=== PATIENT | female | born 1995 | race Caucasian/White ===

== ENCOUNTER 2018-01-23 20:49 | Emergency (ER) | payer MEDICAID ==
[~2018-01-23] VITALS: Ht 149.9 cm; Wt 95.0 kg
[2018-01-23 23:00] VITALS: BP 124/86
[2018-01-23] MEDS ORDERED: HYDROGEN PEROXIDE 118 ML SOLUTION TP ONE (23:00)
== END 2018-01-23 23:58 | disposition home or self-care (01) ==
LOC: EMS 20:50
DX: H61.22 Impacted cerumen, left ear (principal)
CPT/HCPCS: 69209; 99282